=== PATIENT | male | born 1985 | race Caucasian/White ===

== ENCOUNTER 2017-05-03 00:45 | Inpatient (IN) | payer MEDICAID, OTHER ==
[2017-05-03] MEDS ORDERED: Haloperidol INJ IV/IM* 5 MG/ML AMP ONE (01:05)
[2017-05-03] MEDS ORDERED: LORazepam INJ* 2 MG/ML 1 ML VIAL ONE (01:05)
[2017-05-03] MEDS: NS 0.9% 1000 ML* 2,000 ML IV ONE ×2 (01:47→02:16)
[2017-05-03 01:52] LABS: Hematocrit 40 % (42-52); Hemoglobin 13.7 g/dl (14.0-18.0); Mean Corpuscular HGB Conc 34 g/dl (31-36); Mean Corpuscular Hemoglobin 27 pg (27-31); Mean Corpuscular Volume 79 fL (80-94); Mean Platelet Volume 7 um3 (7.4-10.4); Red Cell Distribution Width 15 % (10.5-15); White Blood Count 9.4 10^3/ul (3.5-10.8)
[2017-05-03 02:08] LABS: ALT 42 U/L (7-52); AST 37 U/L (13-39); Albumin 3.9 g/dL (3.2-5.2); Alkaline Phosphatase 70 U/L (34-104); Anion Gap 7 mmol/L (2-11); BUN/Creatinine Ratio 26.4 (8-20); Blood Urea Nitrogen 24 mg/dL (6-24); CO2 Carbon Dioxide 26 mmol/L (22-32); Calcium 8.9 mg/dL (8.6-10.3); Chloride 101 mmol/L (101-111); EGFR Non-African American 97.2 (>60); Globulin 3.1 g/dL (2-4); Glucose 127 mg/dL (70-100); Potassium 3.4 mmol/L (3.5-5.0); Sodium 134 mmol/L (133-145)
[2017-05-03 02:31] LABS: Alcohol < 10 mg/dL (<10); Salicylate < 2.50 mg/dL (<30); TSH (Thyroid Stimulating Horm) 2.93 mcIU/mL (0.34-5.60)
[2017-05-03 02:45] LABS: Acetaminophen < 15 mcg/mL
--- NOTE | 2017-05-03 06:26 | ED ---
Millie Chauhan Rebecca, scribed for Syed Newton on 05/03/17 at 0110 . Psychiatric Complaint - HPI Summary HPI Summary: Pt is a 31 y/o M BIBA accompanied by police who presents to ED as a 2208 after being found agitated. He was found in the [facility] bathroom screaming, yelling and tearing the bathroom apart for 20 minutes, per EMS. Pt continues to be agitated in the ED. Denies any drug use. States that his 3 days ago and that he has been unable to eat or sleep for 3 days. Level 5 caveat due to uncooperativity and agitation. - History Of Current Complaint Chief Complaint: EDSubstanceAbuse Time Seen by Provider: 05/03/17 00:51 Hx Obtained From: EMS Hx From Patient Unobtainable Due To: Other - Uncooperativity and agitation Onset/Duration: Still Present Character: Angry - Agitated - Allergies/Home Medications Allergies/Adverse Reactions: Allergies Allergy/AdvReac Type Severity Reaction Status Date / Time No Known Allergies Allergy Verified 05/03/17 00:56 PMH/Surg Hx/FS Hx/Imm Hx Endocrine/Hematology History: Denies: Hx Diabetes, Hx Thyroid Disease Cardiovascular History: Denies: Hx Hypertension Respiratory History: Reports: Hx Asthma - chiild Denies: Hx Chronic Obstructive Pulmonary Disease (COPD) GI History: Denies: Hx Ulcer History: Denies: Hx Acute Renal Failure, Hx Chronic Renal Failure Neurological History: Denies: Hx Headaches, Hx Migraine Psychiatric History: Reports: Hx Substance Abuse - Surgical History Surgery Procedure, Year, and Place: 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 Infectious Disease History: Unable to Obtain/Confirm Infectious Disease History: Reports: Hx Hepatitis - hep c Denies: Hx Clostridium Difficile, Hx Human Immunodeficiency Virus (HIV), Hx Known/Suspected VRSA, History Other Infectious Disease, Traveled Outside the [place] in Last 30 Days - Family History Known Family History: Positive: Cardiac Disease, Hypertension - Social History Alcohol Use: Rare Hx Substance Use: Yes Substance Use Type: Reports: Heroin, Marijuana, Synthetic Drugs Substance Use Comment - Amount & Last Used: hx of IV drug use Hx Tobacco Use: Yes Smoking Status (MU): Current Every Day Smoker Amount Used/How Often: 1/2 - 1 ppd Have You Smoked in the Last Year: Yes Review of Systems - ROS Summary Review of Systems Summary: Level 5 caveat due to uncooperativity and agitation. Positive: Other - Agitated All Other Systems Reviewed And Are Negative: No Physical Exam - Summary Physical Exam Summary: Appearance: Well appearing, no pain distress Skin: warm, diaphoretic, reflects adequate perfusion Head/face: normal Eyes: EOMI, KIYA ENT: normal Neck: supple, nontender Respiratory: CTA, breath sounds present Cardiovascular: tachycardic, pulses symmetrical Musculoskeletal: moves all extremities in a grossly normal manner Psychiatric: Agitated Level 5 caveat due to agitation and uncooperativity. Triage Information Reviewed: Yes Vital Signs On Initial Exam: Initial Vitals Temp Pulse Resp BP Pulse Ox 99.3 F 125 20 153/91 96 05/03/17 00:45 05/03/17 00:45 05/03/17 00:45 05/03/17 00:45 05/03/17 00:45 Vital Signs Reviewed: Yes Completion Of Physical Exam Limited Due To: Level 5 - Uncooperativity and agitation Diagnostics - Vital Signs Vital Signs Temp Pulse Resp BP Pulse Ox 05/03/17 01:00 119 28 139/69 97 05/03/17 00:55 121 19 153/91 97 05/03/17 00:52 124 18 94 05/03/17 00:45 99.3 F 125 20 153/91 96 - Laboratory Lab Results: Lab Results 05/03/17 05/03/17 05/03/17 Range/Units 01:31 01:31 01:31 WBC 9.4 (3.5-10.8) 10^3/ul RBC 5.10 (4.0-5.4) 10^6/ul Hgb 13.7 L (14.0-18.0) g/dl Hct 40 L (42-52) % MCV 79 L (80-94) fL MCH 27 (27-31) pg MCHC 34 (31-36) g/dl RDW 15 (10.5-15) % Plt Count 346 (150-450) 10^3/ul MPV 7 L (7.4-10.4) um3 Neut % (Auto) 59.6 (38-83) % Lymph % (Auto) 20.7 L (25-47) % [place] % (Auto) 12.0 H (1-9) % Eos % (Auto) 6.9 H (0-6) % Baso % (Auto) 0.8 (0-2) % Absolute Neuts (auto) 5.6 (1.5-7.7) 10^3/ul Absolute Lymphs (auto) 2.0 (1.0-4.8) 10^3/ul Absolute Monos (auto) 1.1 H (0-0.8) 10^3/ul Absolute Eos (auto) 0.6 (0-0.6) 10^3/ul Absolute Basos (auto) 0.1 (0-0.2) 10^3/ul Absolute Nucleated RBC 0.01 10^3/ul Nucleated RBC % 0.1 Sodium 134 (133-145) mmol/L Potassium 3.4 L (3.5-5.0) mmol/L Chloride 101 (101-111) mmol/L Carbon Dioxide 26 (22-32) mmol/L Anion Gap 7 (2-11) mmol/L BUN 24 (6-24) mg/dL Creatinine 0.91 (0.67-1.17) mg/dL Est GFR ( Amer) 125.0 (>60) Est GFR (Non-Af Amer) 97.2 (>60) BUN/Creatinine Ratio 26.4 H (8-20) Glucose 127 H (70-100) mg/dL Lactic Acid 1.0 (0.5-2.0) mmol/L Calcium 8.9 (8.6-10.3) mg/dL Total Bilirubin 0.90 (0.2-1.0) mg/dL AST 37 (13-39) U/L ALT 42 (7-52) U/L Alkaline Phosphatase 70 (34-104) U/L CK-MB (CK-2) Pending Troponin I 0.00 (<0.04) ng/mL Total Protein 7.0 (6.4-8.9) g/dL Albumin 3.9 (3.2-5.2) g/dL Globulin 3.1 (2-4) g/dL Albumin/Globulin Ratio 1.3 (1-3) TSH 2.93 (0.34-5.60) mcIU/mL Salicylates < 2.50 (<30) mg/dL Acetaminophen < 15 mcg/mL Serum Alcohol < 10 (<10) mg/dL Result Diagrams: 05/03/17 01:31 05/03/17 01:31 Lab Statement: Any lab studies that have been ordered have been reviewed, and results considered in the medical decision making process. - Radiology CXR Xray Interpretation: No Acute Changes - congestive changes Radiology Interpretation Completed By: ED Physician - EKG 0100 Cardiac Rate: Tachycardia EKG Rhythm: Sinus Tachycardia EKG Interpretation: Artifact Course/Dx - Course Assessment/Plan: Pt is a 31 y/o M BIBA accompanied by police who presents to ED as a 2209 after being found agitated. He was found in the [facility] bathroom screaming, yelling and tearing the bathroom apart for 20 minutes, per EMS. Pt continues to be agitated in the ED. Denies any drug use. States that his 3 days ago and that he has been unable to eat or sleep for 3 days. Level 5 caveat due to uncooperativity and agitation. CXR reveals no acute findings, as read by ED physician. EKG is sinus tachycardia with artifact. In the ED course, pt received Ativan 2 mg IM, Benadryl 50 mg IM, and Haldol 5 mg and fluids. Pt will be signed out, pending disposition. Elevated BP noted. - Differential Dx/Clinical Impression Differential Diagnosis/HQI/PQRI: Positive: Alcohol Intoxication, Anxiety, Drug Overdose/Intentional Provider Diagnosis: Substance abuse - Critical Care Time Critical Care Time: 30-74 min Discharge - Discharge Plan Condition: Stable Disposition: OTHER Discharge Disposition Comment: Pt will be signed out, pending disposition. Referrals: No Primary Care Phys,NOPCP [Primary Care Provider] - The documentation as recorded by the Millie boyd Rebecca accurately reflects the service I personally performed and the decisions made by , Syed Newton.
[2017-05-03 07:48] LABS: Creatine Kinase 242 U/L (10-223)
[2017-05-03] MEDS ORDERED: NS 0.9% 1000 ML* 2,000 ML IV ONE (07:53)
--- NOTE | 2017-05-03 08:10 | RAD ---
Indication: Drug overdose. Single frontal view of the chest performed at 0141 hours was reviewed. Comparison is made with previous exam dated February 18, 2015. No mediastinal shift is noted. Heart is of normal size and configuration. Lung wood appear clear. IMPRESSION: NO ACTIVE CARDIOPULMONARY DISEASE IS NOTED.
--- NOTE | 2017-05-03 08:59 | RAD ---
Indication: Confusion. CT of the brain was performed without IV contrast. Ventricular structures are midline. No midline shift is noted. The extra-axial spaces are unremarkable. There is no evidence of intracranial mass or hemorrhage. No other high or low density lesions are identified. Mastoid air cells and paranasal sinuses demonstrates mucosal thickening of the sphenoid sinuses and ethmoid air cells. IMPRESSION: No intracranial mass or hemorrhage is noted.
--- NOTE | 2017-05-03 09:12 | RAD ---
INDICATION: Altered mental status. COMPARISON: No relevant prior exams available on the [facility] PACS for comparison. TECHNIQUE: Multidetector CT images foramen magnum to lung apices without contrast. Multiplanar reformation. REPORT: Motion artifact noted at the T3 level. Normal vertebral alignment accounting for exam positioning without spondylolisthesis or subluxation at any level. Negative for cervical vertebral body or posterior element fracture. Negative for paravertebral hematoma. Mild vertebral endplate osteophytosis without significant disc space narrowing at C5-C6. Mild dorsal disc osteophyte complex at C5-C6 results in minimal impression on the ventral margin of the thecal sac without significant resulting central canal stenosis. IMPRESSION: No CT evidence for traumatic cervical spine injury.
[2017-05-03 11:31] LABS: Urine Bilirubin Negative (Negative); Urine Glucose Negative (Negative); Urine Nitrite Negative (Negative)
[2017-05-03 12:04] LABS: Benzodiazepine Urine Screen None Detected (None Detect)
[2017-05-03] MEDS: NS 0.9% 1000 ML* 1,000 ML IV SCH ×2 (15:26→23:06)
--- NOTE | 2017-05-03 16:18 | ED ---
José Chauhan Benjamin, scribed for Terrance Conn MD on 05/03/17 at 1111 . Progress - Progress Note Progress Note: 31yo male presents to ED as 2209. Pending disposition and CT reports and repeat EKG. - Results/Orders Results/Orders: EK:01. 61bpm. Biphasic STs in Anterior leads. Prolonged QTCs. CT Brain WO IMPRESSION: No intracranial mass or hemorrhage is noted. ED physician has reviewed this radiology report and agrees. CT C-spine WO IMPRESSION: No CT evidence for traumatic cervical spine injury. ED physician has reviewed this radiology report and agrees. Course/Dx - Course Course Of Treatment: PATIENT STILL CONFUSED AFTER 6 HOURS IN ED. ADMIT HOSPITALIST. - Diagnoses Provider Diagnoses: Substance abuse, Altered mental state - Critical Care Time Critical Care Time: 30-74 min The documentation as recorded by the José boyd Benjamin accurately reflects the service I personally performed and the decisions made by , Terrance Conn MD.
--- NOTE | 2017-05-04 00:19 | HP ---
HISTORY AND PHYSICAL: DATE OF ADMISSION: 05/03/17 PRIMARY CARE PHYSICIAN: The patient has no primary care physician. CHIEF COMPLAINT: The patient agitated and confused. HISTORY OF PRESENT ILLNESS: The patient is a 31-year-old gentleman, who was brought into the emergency room last night agitated and confused. He required medication for sedation. Unfortunately after the patient received sedation, he could no longer be arouse. The patient's urine toxicology apparently came back positive for opiates, cocaine, amphetamines, and marijuana. The patient's apparently in the hospital approximately 1 week ago and he has been quite depressed according to the mother. It is unclear if he took these medications to actively hurt himself or just as self-medicating his own personal pain. The patient is being admitted to the ICU under observation, this can be clarified. PAST MEDICAL HISTORY: Polysubstance abuse. MEDICATIONS: Unknown. SOCIAL HISTORY: Polysubstance use, otherwise unknown. FAMILY HISTORY: last week, otherwise unknown. REVIEW OF SYSTEMS: Unable to obtain again from the patient's conscious sedation and unknown. PHYSICAL EXAMINATION GENERAL: The patient is sedated, lying in bed, in no acute distress. VITAL SIGNS: Blood pressure is 109/51, pulse ox 96%, respiratory rate 15 breaths per minute, heart rate 67 beats per minute. HEENT: Normocephalic, atraumatic. NECK: Supple. No JVD, bruits, palpable thyroid, or lymphadenopathy. CHEST: Clear to auscultation and percussion bilaterally. CARDIOVASCULAR: S1, S2 appreciated. Regular rate and rhythm. ABDOMEN: Positive bowel sounds in all 4 quadrants. Soft, nontender, and nondistended. EXTREMITIES: No cyanosis, clubbing, or edema. +2 pulses bilaterally. NEURO: He is sedated, unarousable, but he moves all extremities. He is protecting his airway. SKIN: No rashes. DIAGNOSTIC STUDIES/LAB DATA: White count 9.4, hemoglobin 13.7, hematocrit 40, platelets are 346. Sodium is 134, potassium 3.4, chloride 101, CO2 26, BUN 24, creatinine 0.91, glucose is 127. Urinalysis is unremarkable. Urine tox again positive for opiates, amphetamines, cocaine, and marijuana. Chest x-ray shows no active cardiopulmonary disease. Brain CT shows no intracranial mass or hemorrhage. Cervical spine CT shows no CT evidence for traumatic cervical spine injury. EKG shows sinus bradycardia at 54 beats per minute, normal axis, no acute ST-T wave changes. ASSESSMENT AND PLAN: 1. Likely drug overdose: We will monitor the patient in the ICU with one-to- one observation. At this point, it is unclear that this was a suicide attempt or not. When the patient wakes up, we will discuss with him. We will get social work consult. We will get psychiatric consult. 2. FEN. N.p.o., IV fluids at this time. 3. DVT prophylaxis. None, he is young and ambulatory. 4. The patient is a full code. TIME SPENT: Over 75 minutes were spent on this H and P, more than 40 minutes were spent in direct [id number] contact with the patient in evaluation, physical exam and counseling and coordination of care. [id number]/CPS #: [id number] CHARMAINE
[2017-05-04] MEDS ORDERED: cloNIDine TAB* 0.1 MG ONE (11:36)
[2017-05-04] MEDS: cloNIDine TAB* 0.1 MG PO PRN ×2 (11:39→22:21)
[2017-05-04] MEDS: NS 0.9% 1000 ML* 1,000 ML IV SCH (13:18)
[2017-05-04] MEDS: Nicotine PATCH 21 MG/24 HR* PATCH TRANSDERM SCH ×2 (16:38→16:40)
[2017-05-04] MEDS: LORazepam INJ* 2 MG/ML 1 ML VIAL IV PUSH PRN ×2 (17:15→22:16)
[2017-05-04] MEDS ORDERED: Ondansetron INJ* 2 MG/ML VIAL IV PRN (20:46)
[2017-05-04] MEDS ORDERED: Nicotine Patch Removal NOTE FOLLOW UP SCH (21:00)
--- NOTE | 2017-05-04 21:43 | PN ---
Subjective Date of Service: 05/04/17 Interval History: Patient awake today and wants to go home. Objective Active Medications: Clonidine HCl (Catapres Tab*) 0.1 mg PO TID PRN PRN Reason: AGITATION/ANXIETY/INSOMNIA Last Admin: 05/04/17 11:39 Dose: 0.1 mg Sodium Chloride (Ns 0.9% 1000 Ml*) 1,000 mls @ 125 mls/hr IV PER RATE [facility] Last Admin: 05/04/17 13:18 Dose: 125 mls/hr Lorazepam (Ativan Inj*) 0.5 mg IV PUSH Q4H PRN PRN Reason: ANXIETY Last Admin: 05/04/17 17:15 Dose: 0.5 mg Nicotine (Nicotine Patch 21 Mg/24 Hr*) 1 patch TRANSDERM DAILY [facility] Last Admin: 05/04/17 16:40 Dose: Not Given Ondansetron HCl (Zofran Inj*) 4 mg IV Q6H PRN PRN Reason: NAUSEA Pharmacy Profile Note (Nicotine Patch Removal Note*) 1 note FOLLOW UP 2100 [facility] Vital Signs 05/03/17 05/03/17 05/03/17 21:45 22:00 22:01 Temperature Pulse Rate 73 65 63 Respiratory 16 16 15 Rate Blood Pressure 118/71 126/85 (mmHg) O2 Sat by Pulse 95 96 96 Oximetry 05/03/17 05/03/17 05/03/17 22:10 22:15 22:30 Temperature Pulse Rate 70 82 69 Respiratory 15 17 18 Rate Blood Pressure 123/73 114/74 (mmHg) O2 Sat by Pulse 96 96 98 Oximetry 05/03/17 05/03/17 05/03/17 22:45 23:00 23:15 Temperature Pulse Rate 70 61 70 Respiratory 26 15 22 Rate Blood Pressure 108/69 124/70 115/65 (mmHg) O2 Sat by Pulse 97 97 95 Oximetry 05/03/17 05/03/17 05/04/17 23:30 23:45 00:00 Temperature Pulse Rate 61 73 70 Respiratory 23 19 14 Rate Blood Pressure 110/64 111/53 104/58 (mmHg) O2 Sat by Pulse 96 98 98 Oximetry 05/04/17 05/04/17 05/04/17 00:01 00:15 00:30 Temperature Pulse Rate 79 72 77 Respiratory 15 15 14 Rate Blood Pressure 113/56 109/56 (mmHg) O2 Sat by Pulse 95 97 96 Oximetry 05/04/17 05/04/17 05/04/17 00:33 00:45 00:56 Temperature 98.5 F Pulse Rate 77 Respiratory 15 14 Rate Blood Pressure 113/55 (mmHg) O2 Sat by Pulse 96 Oximetry 05/04/17 05/04/17 05/04/17 01:00 01:01 01:15 Temperature Pulse Rate 69 64 96 Respiratory 22 14 22 Rate Blood Pressure 103/56 120/75 (mmHg) O2 Sat by Pulse 97 97 95 Oximetry 05/04/17 05/04/17 05/04/17 01:30 01:45 02:00 Temperature Pulse Rate 75 73 80 Respiratory 25 16 14 Rate Blood Pressure 112/53 131/76 (mmHg) O2 Sat by Pulse 95 98 97 Oximetry 05/04/17 05/04/17 05/04/17 02:01 02:15 02:30 Temperature Pulse Rate 76 86 71 Respiratory 14 15 15 Rate Blood Pressure 119/75 124/73 140/81 (mmHg) O2 Sat by Pulse 97 96 99 Oximetry 05/04/17 05/04/17 05/04/17 02:45 03:00 03:01 Temperature Pulse Rate 71 66 71 Respiratory 15 14 16 Rate Blood Pressure 138/83 118/81 (mmHg) O2 Sat by Pulse 99 97 97 Oximetry 05/04/17 05/04/17 05/04/17 03:15 03:38 03:46 Temperature Pulse Rate 62 68 88 Respiratory 18 14 13 Rate Blood Pressure 111/88 122/61 110/55 (mmHg) O2 Sat by Pulse 95 97 98 Oximetry 05/04/17 05/04/17 05/04/17 04:00 04:01 04:16 Temperature 99.1 F Pulse Rate 78 63 Respiratory 18 20 18 Rate Blood Pressure 125/86 126/82 (mmHg) O2 Sat by Pulse 92 Oximetry 05/04/17 05/04/17 05/04/17 04:30 04:45 05:00 Temperature Pulse Rate Respiratory 16 19 20 Rate Blood Pressure 129/75 121/62 108/61 (mmHg) O2 Sat by Pulse Oximetry 05/04/17 05/04/17 05/04/17 05:15 06:00 06:01 Temperature Pulse Rate 75 66 Respiratory 16 28 29 Rate Blood Pressure 89/73 126/75 (mmHg) O2 Sat by Pulse 100 100 Oximetry 05/04/17 05/04/17 05/04/17 06:04 06:15 07:00 Temperature Pulse Rate 66 65 Respiratory 29 24 23 Rate Blood Pressure 148/86 151/95 (mmHg) O2 Sat by Pulse 100 100 Oximetry 05/04/17 05/04/17 05/04/17 07:01 07:58 08:00 Temperature 99.3 F Pulse Rate 98 66 Respiratory 18 23 Rate Blood Pressure 138/78 (mmHg) O2 Sat by Pulse 96 97 Oximetry 05/04/17 05/04/17 05/04/17 08:01 09:00 09:01 Temperature Pulse Rate 80 Respiratory 23 30 34 Rate Blood Pressure 157/81 (mmHg) O2 Sat by Pulse 96 Oximetry 05/04/17 05/04/17 05/04/17 10:00 10:01 11:00 Temperature Pulse Rate Respiratory 23 24 25 Rate Blood Pressure 161/87 155/83 (mmHg) O2 Sat by Pulse Oximetry 05/04/17 05/04/17 05/04/17 11:01 11:50 12:00 Temperature 99.1 F Pulse Rate Respiratory 16 31 Rate Blood Pressure 163/91 (mmHg) O2 Sat by Pulse Oximetry 05/04/17 05/04/17 05/04/17 12:01 13:00 13:51 Temperature Pulse Rate Respiratory 25 20 19 Rate Blood Pressure 170/112 132/95 (mmHg) O2 Sat by Pulse Oximetry 05/04/17 05/04/17 05/04/17 14:20 14:23 16:33 Temperature 98.1 F 98.1 F 98.5 F Pulse Rate 73 73 65 Respiratory 22 22 20 Rate Blood Pressure 145/81 145/81 152/85 (mmHg) O2 Sat by Pulse 100 100 100 Oximetry 05/04/17 05/04/17 05/04/17 17:15 18:15 19:37 Temperature 99.3 F Pulse Rate 68 Respiratory 20 20 18 Rate Blood Pressure 136/68 (mmHg) O2 Sat by Pulse 100 Oximetry Oxygen Devices in Use Now: None Appearance: Thin gentleman lying in bed in NAD Eyes: No Scleral Icterus Ears/Nose/Mouth/Throat: Mucous Membranes Moist Neck: NL Appearance and Movements; NL JVP, No Thyroid Enlargement, Masses Respiratory: Clear to Auscultation Cardiovascular: NL Sounds; No Murmurs; No JVD, RRR, No Edema Abdominal: NL Sounds; No Tenderness; No Distention, No Hepatosplenomegaly Lymphatic: No Cervical Adenopathy, No Axillary Adenopathy Extremities: No Edema Skin: - - Numerous tattoos Neurological: Alert and Oriented x 3 Result Diagrams: 05/03/17 01:31 05/03/17 01:31 Additional Lab and Data: Lab Results 05/03/17 05/03/17 05/03/17 Range/Units 01:31 01:31 01:31 WBC 9.4 (3.5-10.8) 10^3/ul RBC 5.10 (4.0-5.4) 10^6/ul Hgb 13.7 L (14.0-18.0) g/dl Hct 40 L (42-52) % MCV 79 L (80-94) fL MCH 27 (27-31) pg MCHC 34 (31-36) g/dl RDW 15 (10.5-15) % Plt Count 346 (150-450) 10^3/ul MPV 7 L (7.4-10.4) um3 Neut % (Auto) 59.6 (38-83) % Lymph % (Auto) 20.7 L (25-47) % [place] % (Auto) 12.0 H (1-9) % Eos % (Auto) 6.9 H (0-6) % Baso % (Auto) 0.8 (0-2) % Absolute Neuts (auto) 5.6 (1.5-7.7) 10^3/ul Absolute Lymphs (auto) 2.0 (1.0-4.8) 10^3/ul Absolute Monos (auto) 1.1 H (0-0.8) 10^3/ul Absolute Eos (auto) 0.6 (0-0.6) 10^3/ul Absolute Basos (auto) 0.1 (0-0.2) 10^3/ul Absolute Nucleated RBC 0.01 10^3/ul Nucleated RBC % 0.1 Sodium 134 (133-145) mmol/L Potassium 3.4 L (3.5-5.0) mmol/L Chloride 101 (101-111) mmol/L Carbon Dioxide 26 (22-32) mmol/L Anion Gap 7 (2-11) mmol/L BUN 24 (6-24) mg/dL Creatinine 0.91 (0.67-1.17) mg/dL Est GFR ( Amer) 125.0 (>60) Est GFR (Non-Af Amer) 97.2 (>60) BUN/Creatinine Ratio 26.4 H (8-20) Glucose 127 H (70-100) mg/dL Lactic Acid 1.0 (0.5-2.0) mmol/L Calcium 8.9 (8.6-10.3) mg/dL Total Bilirubin 0.90 (0.2-1.0) mg/dL AST 37 (13-39) U/L ALT 42 (7-52) U/L Alkaline Phosphatase 70 (34-104) U/L CK-MB (CK-2) Pending Troponin I 0.00 (<0.04) ng/mL Total Protein 7.0 (6.4-8.9) g/dL Albumin 3.9 (3.2-5.2) g/dL Globulin 3.1 (2-4) g/dL Albumin/Globulin Ratio 1.3 (1-3) TSH 2.93 (0.34-5.60) mcIU/mL Salicylates < 2.50 (<30) mg/dL Acetaminophen < 15 mcg/mL Serum Alcohol < 10 (<10) mg/dL Microbiology and Other Data: Microbiology 05/03/17 14:55 Nasal Screen MRSA (PCR)(BUNNY) - Final Nasal Mrsa Positive Assess/Plan/Problems-Billing Assessment: 31 year old who OD on polysubstances and is significantly depressed since his last week. - Patient Problems (1) Overdose Current Visit: Yes Status: Acute Code(s): T50.901A - POISONING BY UNSP DRUG/ MEDS/BIOL SUBST, ACCIDENTAL, INIT SNOMED Code(s): 28385487 Comment: Patient denies he was trying to kill himself. Overdose by accident . Tried to ease the pain of losing his . Wants to go home. (2) Depression Current Visit: Yes Status: Acute Code(s): F32.9 - MAJOR DEPRESSIVE DISORDER , SINGLE EPISODE, UNSPECIFIED SNOMED Code(s): 05877564 Comment: The patient does not seem to grasp the gravity of his situation or that he could by continuing his current behavior. Psych has seen and agrees he is not safe and is a danger to himself. Will transfer to Psych when medically stable which will likely be tomorrow.
--- NOTE | 2017-05-04 22:08 | CONS ---
CONSULTATION REPORT: DATE OF CONSULTATION: ATTENDING PHYSICIAN: Dilshad Cherry MD CONSULTING PHYSICIAN: Christian Arreguin MD REASON FOR CONSULT: Agitated behavior. SUBJECTIVE HISTORY: Psychiatry is asked to see this 31-year-old recently white male with a history of polysubstance abuse (amphetamines, opioids, cocaine, and cannabis) due to agitated behavi or. Apparently, the patient was discovered in a bathroom at the local [employer] extremely confused, c ombative, agitated, unable to account for himself. He was brought to the hospital where he continue d to act out and he was therefore brought to the ICU after attempts to chemically restrain him resul angela in obtunded somnolent behavior. My understanding is that he has awoken this morning and continu es to be agitated and demanding and is asking to go home. The history leading up to this event is th at his of the past 6 years just on , 04/29/17. She was a patient at the ICU here at [facility] who apparently was also an IV drug user. Ultimately, she of complications from endocard itis and sepsis, likely both secondary to IV drug use. The patient has taken this hard. He has bee n despondent. I had spoken with his adoptive mother who indicates that he made a statement to his p myrtlets that he would no longer use drugs because he felt that it was not a solution to his pain. In spite of this, he appears to have had a polysubstance overdose given the fact that he had cannabis, cocaine, amphetamines, and opioids in his system according to urine toxicology results. Currently, I am speaking with his father, Bill Pena and his mother, Dang Puentes. They indicate that the flip varma has been living for the last 5 or 6 years here in [place] with his spouse. They are concerned because her is being arranged by her family out in [place], [place], and the patient is e xpressing interest in flying there to attend that, but they claim that this would not be safe at all . In fact, they are stating they do not even feel safe taking him home given the fact that his moth er lives part-time in [facility] and his father travels extensively. They also do not feel that they could provide adequate structure for him in the home setting. When I meet with the patient, he continues to have slurred words, appearing somnolent but at times he arouses himself enough to make agitated demands that the leave he hospital immediately and go home. He is unable to provide much c oherent history and I am relying on his parents for the bulk of my assessment. PAST PSYCHIATRIC HISTORY: The patient apparently began seeing psychologist and mental health bridgett gutierrez at the young age of 55 years old, although he has not seen any mental health providers in the 15 years as far as his parents can tell. At times, he has told them that he is on Concerta; [facility], when I checked the [employer] Controlled Substances website, the only medications I see are a brief list of short-term prescriptions for Suboxone written by the ER physician, Dr. Kylie fitzpatrick, in July 2016. The patient was sent to several children's residential treatment facilities, at least 3 during his adolescence. There, he received multiple trials of antipsychotic medications; h owever, neither the parents nor the patient recall the names of these medications. Currently, the p atient is denying suicidal ideations. He apparently has no history of violence towards others, alth ough he was kicked out of schools in the past for aggressive behavior and not following rules. He h as no known traumatic brain injury history. The patient's parents are unaware that he has ever been a victim of abuse or neglect. SUBSTANCE ABUSE HISTORY: Significant for heroin, cocaine, amphetamines and cannabis. He is a 1 pac k per day smoker. He does not abuse alcohol. According to [employer], he received Suboxone briefly in July [address] Kylie Hernandez. He has been to rehab at least once for 3 months in [place] apparently 10 years ago. PAST MEDICAL HISTORY: Significant for: 1. Inguinal hernia. 2. Hepatitis C. 3. History of MRSA. 4. Prostatitis. 5. Renal calculi. MEDICATIONS: He is not on any current medications. ALLERGIES: He has no known drug allergies. FAMILY HISTORY: The patient was adopted at . His biological father apparently committed suici de just prior to his , although the patient does not know this. SOCIAL HISTORY: The patient was born in [place] and then his adoptive parents moved him to [place]. The family later moved to [place] when the patient was only 2 years old. He dropped out of school as a senior after going to several therapeutic boarding homes and residential treatment faci lities, but ultimately was able to get his GED. He has no college history. He does have 1 sister karson adamson is the biological child of his adoptive parents. She is 31 years old also. 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 He does receive fi nancial support from his parents. He was at the age of 25, although his spouse just le ss than a week ago. He has no children of his own. He identifies as heterosexual but has no known sexually transmitted diseases. He is not latter-day, although he was raised Jehovah'S Witness. He does have a significant legal history of multiple drug charges in the past resulting in both snf time as well a s state group home stays. He is not currently on probation. MENTAL STATUS EXAM: The patient is a young, somewhat slightly built red haired white male wearing a hospital gown who is scrunched up in the position lying on his side in the hospital bed withi n the ICU. He is asleep, but is arousable. He has minimal words to say with not much spontaneous sp eech other than to request discharge to home. At times, there is a slight agitated presentation. M ood appears to be extremely depressed with a constricted affect. Thought process is confused. Thou ght content is significant for his desire to leave the hospital. He is denying suicidal or homicida l ideations. He denies auditory or visual hallucinations. Insight and judgment appeared to be sonia edly poor and impaired given his refusal of inpatient psychiatric or substance abuse treatment. Cogn itively, he is asleep, but barely arousable. DIAGNOSES: Cropsey I: Opioid-induced mood disorder, opioid use disorder, amphetamine use disorder, ca nnabis use disorder, cocaine use disorder. Cropsey II: Deferred. Cropsey III: Inguinal hernia, hepatitis C, history of MRSA, history of prostatitis, history of renal calculi. Cropsey IV: Severe primary supp ort stressors. Cropsey V: At this time is 30. ASSESSMENT: The patient is a 31-year-old recently white male with a significant history of drug abuse who is currently admitted to the ICU after he arrived agitated to our hospital and requir ed chemical sedation. He has since woken up from this and although still somnolent, he has been per iodically agitated. His parents do not believe that he is safe for discharge. They are indicating t hey believe that his drug overdose may have been self-harming in intention, although the patient is denying this. RECOMMENDATIONS TO PRIMARY TEAM: Psychiatry believes that there is enough evidence of the patient's risk to himself that a 9.39 can be signed by the primary team and the patient can be transferred pe nding medical clearance to the behavioral science unit. For now, I am going to write an order to pu t him back on one-to-one observation. I am also going to start a nicotine patch to reduce agitation secondary to nicotine craving. Psychiatry will continue to follow the patient's care until he is t ransferred to our unit. Thank you for allowing us to participate in the care of this patient. [id number]/[facility] #: [id number]
[2017-05-05] MEDS: NS 0.9% 1000 ML* 1,000 ML IV SCH (07:51)
[2017-05-05 09:12] VITALS: BP 119/66
[2017-05-05] MEDS: Nicotine PATCH 21 MG/24 HR* PATCH TRANSDERM SCH (09:21)
[2017-05-05] MEDS ORDERED: Ziprasidone IM INJ* 20 MG/ML VIAL IM ONE (11:00)
--- NOTE | 2017-05-05 14:51 | PN ---
Subjective Date of Service: 05/05/17 Interval History: Patient is fairly adamant about going home. Objective Active Medications: Clonidine HCl (Catapres Tab*) 0.1 mg PO TID PRN PRN Reason: AGITATION/ANXIETY/INSOMNIA Last Admin: 05/04/17 22:21 Dose: 0.1 mg Sodium Chloride (Ns 0.9% 1000 Ml*) 1,000 mls @ 125 mls/hr IV PER RATE [facility] Last Admin: 05/05/17 07:51 Dose: 125 mls/hr Lorazepam (Ativan Inj*) 0.5 mg IV PUSH Q4H PRN PRN Reason: ANXIETY Last Admin: 05/04/17 22:16 Dose: 0.5 mg Nicotine (Nicotine Patch 21 Mg/24 Hr*) 1 patch TRANSDERM DAILY [facility] Last Admin: 05/05/17 09:21 Dose: Not Given Ondansetron HCl (Zofran Inj*) 4 mg IV Q6H PRN PRN Reason: NAUSEA Last Admin: 05/04/17 22:17 Dose: 4 mg Pharmacy Profile Note (Nicotine Patch Removal Note*) 1 note FOLLOW UP 2100 [facility] Last Admin: 05/05/17 04:17 Dose: Not Given Vital Signs 05/04/17 05/04/17 05/04/17 16:33 17:15 18:15 Temperature 98.5 F Pulse Rate 65 Respiratory 20 20 20 Rate Blood Pressure 152/85 (mmHg) O2 Sat by Pulse 100 Oximetry 05/04/17 05/04/17 05/04/17 19:37 20:00 22:16 Temperature 99.3 F Pulse Rate 68 Respiratory 18 18 24 Rate Blood Pressure 136/68 (mmHg) O2 Sat by Pulse 100 Oximetry 05/04/17 05/05/17 05/05/17 23:16 02:27 07:47 Temperature 98.1 F 98.3 F Pulse Rate 59 62 Respiratory 16 16 19 Rate Blood Pressure 110/67 119/66 (mmHg) O2 Sat by Pulse 95 100 Oximetry 05/05/17 08:00 Temperature Pulse Rate Respiratory 19 Rate Blood Pressure (mmHg) O2 Sat by Pulse Oximetry Oxygen Devices in Use Now: None Appearance: Thin gentleman lying in bed in NAD Ears/Nose/Mouth/Throat: Clear Oropharnyx Neck: No Thyroid Enlargement, Masses Respiratory: Clear to Auscultation Cardiovascular: RRR, - - S1S2 vida Abdominal: NL Sounds; No Tenderness; No Distention, No Hepatosplenomegaly Lymphatic: No Cervical Adenopathy, No Axillary Adenopathy Extremities: No Edema Skin: No Rash or Ulcers Neurological: Alert and Oriented x 3 Result Diagrams: 05/03/17 01:31 05/03/17 01:31 Additional Lab and Data: Lab Results 05/03/17 05/03/17 05/03/17 Range/Units 01:31 01:31 01:31 WBC 9.4 (3.5-10.8) 10^3/ul RBC 5.10 (4.0-5.4) 10^6/ul Hgb 13.7 L (14.0-18.0) g/dl Hct 40 L (42-52) % MCV 79 L (80-94) fL MCH 27 (27-31) pg MCHC 34 (31-36) g/dl RDW 15 (10.5-15) % Plt Count 346 (150-450) 10^3/ul MPV 7 L (7.4-10.4) um3 Neut % (Auto) 59.6 (38-83) % Lymph % (Auto) 20.7 L (25-47) % [place] % (Auto) 12.0 H (1-9) % Eos % (Auto) 6.9 H (0-6) % Baso % (Auto) 0.8 (0-2) % Absolute Neuts (auto) 5.6 (1.5-7.7) 10^3/ul Absolute Lymphs (auto) 2.0 (1.0-4.8) 10^3/ul Absolute Monos (auto) 1.1 H (0-0.8) 10^3/ul Absolute Eos (auto) 0.6 (0-0.6) 10^3/ul Absolute Basos (auto) 0.1 (0-0.2) 10^3/ul Absolute Nucleated RBC 0.01 10^3/ul Nucleated RBC % 0.1 Sodium 134 (133-145) mmol/L Potassium 3.4 L (3.5-5.0) mmol/L Chloride 101 (101-111) mmol/L Carbon Dioxide 26 (22-32) mmol/L Anion Gap 7 (2-11) mmol/L BUN 24 (6-24) mg/dL Creatinine 0.91 (0.67-1.17) mg/dL Est GFR ( Amer) 125.0 (>60) Est GFR (Non-Af Amer) 97.2 (>60) BUN/Creatinine Ratio 26.4 H (8-20) Glucose 127 H (70-100) mg/dL Lactic Acid 1.0 (0.5-2.0) mmol/L Calcium 8.9 (8.6-10.3) mg/dL Total Bilirubin 0.90 (0.2-1.0) mg/dL AST 37 (13-39) U/L ALT 42 (7-52) U/L Alkaline Phosphatase 70 (34-104) U/L CK-MB (CK-2) Pending Troponin I 0.00 (<0.04) ng/mL Total Protein 7.0 (6.4-8.9) g/dL Albumin 3.9 (3.2-5.2) g/dL Globulin 3.1 (2-4) g/dL Albumin/Globulin Ratio 1.3 (1-3) TSH 2.93 (0.34-5.60) mcIU/mL Salicylates < 2.50 (<30) mg/dL Acetaminophen < 15 mcg/mL Serum Alcohol < 10 (<10) mg/dL Microbiology and Other Data: Microbiology 05/03/17 14:55 Nasal Screen MRSA (PCR)(BUNNY) - Final Nasal Mrsa Positive Assess/Plan/Problems-Billing Assessment: 31 year old who OD on polysubstances and is significantly depressed since his last week. - Patient Problems (1) Overdose Current Visit: Yes Status: Acute Code(s): T50.901A - POISONING BY UNSP DRUG/ MEDS/BIOL SUBST, ACCIDENTAL, INIT SNOMED Code(s): 72384396 Comment: He is not tachycardic, not anxious, not diaphoretic. No evidence of withdrawing. Transfer to Psych. (2) Depression Current Visit: Yes Status: Acute Code(s): F32.9 - MAJOR DEPRESSIVE DISORDER , SINGLE EPISODE, UNSPECIFIED SNOMED Code(s): 01617621 Comment: For Psych transfer today. Appreciate their input.
--- NOTE | 2017-05-05 15:07 | CONSULT ---
Identification - Patient Identification Reason for Psychiatric Consultation: Incapacitating Symptoms -: Patient is a 31 year old, M admitted on 05/03/17. - MHU Identification Employment Status: Unemployed Hx Psychiatric Hospitalization: No History - Objective HPI: Julius is distraught, soheila, irritable, demanding discharge. He denies SI, stating "You guys are making a big mistake trying to keep me here." He states that his intention is to travel to [place], [place] as soon as discharged in order to help his givuig-xw-sev plan for his recently 's . He is psychomotor agitated and depressed, tearful at times. Lab Results: Laboratory Tests 05/04/17 05:30 B-Natriuretic Peptide 67 Exam Appearance: Thin Framed Hygiene: Dirty Grooming: Disheveled Psychomotor Activities: Abnormal-Increased Exhibits Abnormal Movement: Yes Attitude and Relatedness: Irritable Eye Contact: Fair - Speech Quality: Unpressured Latencies: Normal Quantity: Appropriate Patient's Decription of Mood: "Irritable" Observed Affect: Labile Affect Consistent with: Dysphoria Patient's Thought Process: Goal Directed Thought Content: No Passive Wish, No Suicidal Planning, No Homicidal Ideation, No Paranoid Ideation Experiencing Hallucinations: No, Sensorium is Clear Type of Hallucinations: Visual: No, Auditory: No, Command: No Level of Consciousness: Agitated Orientation: Yes Intact, Yes Orientated to Time, Yes Orientated to Place, Yes Orientated to Person Impulse Control: Poor Insight and Judgement: Impaired Impression - Impression Clinical Impression: 31 y.o. recently , white male with a history of polydrug dependence admitted to medicine following overdose on cocaine, heroin, cannabis and amphetamines with questionable motives, suspicious for suicide. Merits Inpatient Hospitalization: Yes Problem List - MHU Problems Type of Problem: Mood Status of Problem: Active Plan - Treatment Plan Treatment Plan: Recommend admission to the [facility] on the grounds that the patient is unable to care for himself or ensure his own safety. Continue 1:1. Can use prn lorazepam for agitation. Psychiatry will continue to follow until he is safely transferred to our care. Continued Medication Management: Start Medication Medications: Current Medications Clonidine HCl (Catapres Tab*) 0.1 mg PO TID PRN PRN Reason: AGITATION/ANXIETY/INSOMNIA Last Admin: 05/04/17 22:21 Dose: 0.1 mg Sodium Chloride (Ns 0.9% 1000 Ml*) 1,000 mls @ 125 mls/hr IV PER RATE [facility] Last Admin: 05/05/17 07:51 Dose: 125 mls/hr Lorazepam (Ativan Inj*) 0.5 mg IV PUSH Q4H PRN PRN Reason: ANXIETY Last Admin: 05/04/17 22:16 Dose: 0.5 mg Nicotine (Nicotine Patch 21 Mg/24 Hr*) 1 patch TRANSDERM DAILY [facility] Last Admin: 05/05/17 09:21 Dose: Not Given Ondansetron HCl (Zofran Inj*) 4 mg IV Q6H PRN PRN Reason: NAUSEA Last Admin: 05/04/17 22:17 Dose: 4 mg Pharmacy Profile Note (Nicotine Patch Removal Note*) 1 note FOLLOW UP 2100 [facility] Last Admin: 05/05/17 04:17 Dose: Not Given - Discharge Plan Discharge Plan: Inpatient Hospitalization
[2017-05-05] MEDS: cloNIDine TAB* 0.1 MG PO PRN (15:35)
--- NOTE | 2017-05-06 06:42 | DS ---
CC: Dr. Arreguin DISCHARGE SUMMARY: DATE OF ADMISSION: 05/03/17 DATE OF DISCHARGE: 05/05/17 ADMISSION DIAGNOSIS: Overdose. DISCHARGE DIAGNOSIS: Overdose. HOSPITAL COURSE: The patient is a 31-year-old gentleman, who presented to [facility] after taking numerous substances. Included were narcotics , cocaine, marijuana, and amphetamines. The patient was sedated once he came to the ER because of agitation. He remained sedated for some time, so he was admitted to the ICU with a one-to-one. The patient did well over the next day. He did start feeling withdrawal with restlessness and agitation and hypertension. He was placed on clonidine p.r.n. The patient remained well for the next 24 hours. Psychiatry was consulted and was agreed that the patient was a harm to himself and did not realize the ramifications; therefore, the patient was admitted to the Psych Unit on 05/05/17 for further treatment. PHYSICAL EXAMINATION: On the date of discharge, a well-developed, well- nourished gentleman sitting up in bed, in no acute distress. Vital Signs: Temperature 98.6 degrees, heart rate 70 beats per minute, respiratory rate 17 breaths per minute, pulse ox 100%, and blood pressure 150/90. HEENT: Normocephalic and atraumatic. Pupils equal, round, and reactive to light. Moist mucous membranes. Neck: Supple. No JVD, bruits, palpable thyroid, or lymphadenopathy. Chest: Clear to auscultation and percussion bilaterally. Cardiovascular Exam: S1 and S2 appreciated. Regular, rate, and rhythm. No murmurs, gallops, or rubs. Abdominal Exam: Positive bowel sounds in all 4 quadrants, soft, nontender, and nondistended. Extremities: No cyanosis, clubbing, or edema. +2 pulses bilaterally. Neuro: Alert and oriented x3, moves all extremities. Skin: No rashes or abnormalities. DISCHARGE MEDICATIONS: 1. Ativan 1 mg every 6 hours as needed. 2. Multivitamin 1 tablet daily. 3. Nicotine inhaler. 4. Tylenol p.r.n. DISCHARGE PLAN: The patient will be discharged for further psychiatric evaluation. TIME SPENT: Over 35 minutes were spent on this discharge, more than 20 minutes of which was spent in direct wwkw-yr-uzho contact with the patient evaluation, physical exam, counseling, and coordination of care. [id number]/[facility] #: [id number] CHARMAINE
== END 2017-05-05 16:44 | DRG 812 ==
LOC: ED 00:45 → ICU 13:03 → MED 05-04 15:19
PROVIDERS: ADMIT Internal Medicine; ATTEND Internal Medicine
DX: T40.7X2A Poisoning by cannabis (derivatives), intentional self-harm, initial encounter (principal); F11.29 Opioid dependence with unspecified opioid-induced disorder; F14.20 Cocaine dependence, uncomplicated; F19.239 Other psychoactive substance dependence with withdrawal, unspecified; F15.20 Other stimulant dependence, uncomplicated; T40.602A Poisoning by unspecified narcotics, intentional self-harm, initial encounter; F17.210 Nicotine dependence, cigarettes, uncomplicated; I10 Essential (primary) hypertension; T40.5X2A Poisoning by cocaine, intentional self-harm, initial encounter; B19.20 Unspecified viral hepatitis C without hepatic coma; K40.90 Unilateral inguinal hernia, without obstruction or gangrene, not specified as recurrent; F12.21 Cannabis dependence, in remission; F32.9 Major depressive disorder, single episode, unspecified; Z82.49 Family history of ischemic heart disease and other diseases of the circulatory system; Y92.009 Unspecified place in unspecified non-institutional (private) residence as the place of occurrence of the external cause; Z87.442 Personal history of urinary calculi; Z86.14 Personal history of Methicillin resistant Staphylococcus aureus infection; Z56.0 Unemployment, unspecified
CPT/HCPCS: 36415; 70450; 71010; 72125; 80053; 80307; 80320; 80329; 81003; 82550; 82553; 83605; 83880; 84443; 84484; 85025; 87040; 87077; 87150; 87205; 87641; 93005; A9270-GY; G0480; J1630; J2060; J2405; J3486

== ENCOUNTER 2017-07-04 14:45 | Emergency (ER) | payer OTHER ==
[2017-07-04 17:00] VITALS: BP 127/85
--- NOTE | 2017-07-20 20:24 | ED ---
Sonia Chauhan Abhishek, scribed for Gee Wright MD on 07/04/17 at 1549 . Skin Complaint - HPI Summary HPI Summary: his patient is a 31 year old M presenting to [facility] with a skin complaint. Patient believes he has MRSA in the back of his leg since 06/04/17. The patient rates the pain 0/10 in severity. Symptoms aggravated by nothing. Symptoms alleviated by nothing. Patient reports pruritus from sores. Patient denies SI, and HI. We reviewed allergies and medications. Patient reports to be seeing grief counseling. - History of Current Complaint Chief Complaint: EDRashSkinAbscess Time Seen by Provider: 07/04/17 15:28 Stated Complaint: SORES ALL OVER Hx Obtained From: Patient Onset/Duration: Started Weeks Ago, Still Present Timing: Constant Pain Intensity: 0 Pain Scale Used: 0-10 Numeric Skin Location: Diffuse, Leg Aggravating Symptom(s): Nothing Alleviating Symptom(s): Nothing - Additional Pertinent History Primary Care Physician: VIKKI - Allergy/Home Medications Allergies/Adverse Reactions: Allergies Allergy/AdvReac Type Severity Reaction Status Date / Time No Known Allergies Allergy Verified 05/11/17 12:36 PMH/Surg Hx/FS Hx/Imm Hx Endocrine/Hematology History: Denies: Hx Diabetes, Hx Thyroid Disease Cardiovascular History: Denies: Hx Hypertension Respiratory History: Reports: Hx Asthma - Child Denies: Hx Chronic Obstructive Pulmonary Disease (COPD) GI History: Denies: Hx Ulcer History: Denies: Hx Acute Renal Failure, Hx Chronic Renal Failure Sensory History: Comment Only: Hx Contacts or Glasses - Unknown, Hx Hearing Aid - Unknown Opthamlomology History: Comment Only: Hx Contacts or Glasses - Unknown Neurological History: Denies: Hx Headaches, Hx Migraine Psychiatric History: Reports: Hx Substance Abuse - Surgical History Surgery Procedure, Year, and Place: 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 - Immunization History Immunizations Up to Date: Yes Infectious Disease History: No Infectious Disease History: Reports: Hx Hepatitis - hep c Denies: Hx Clostridium Difficile, Hx Human Immunodeficiency Virus (HIV), Hx Known/Suspected VRSA, History Other Infectious Disease, Traveled Outside the [place] in Last 30 Days - Family History Known Family History: Positive: Cardiac Disease, Hypertension - Social History Alcohol Use: Unknown Hx Substance Use: Yes Substance Use Type: Reports: None Substance Use Comment - Amount & Last Used: hx of IV drug use Hx Tobacco Use: Yes Smoking Status (MU): Current Every Day Smoker Type: Cigarettes Amount Used/How Often: 1/2 - 1 ppd Have You Smoked in the Last Year: Yes Review of Systems Constitutional: Negative Eyes: Negative ENT: Negative Cardiovascular: Negative Respiratory: Negative Gastrointestinal: Negative Genitourinary: Negative Musculoskeletal: Negative Skin: Other Positive: Other - "Sores" diffuse around his body and lower extremities Neurological: Negative Psychological: Other - Negative SI, and HI All Other Systems Reviewed And Are Negative: Yes Physical Exam - Summary Physical Exam Summary: Constitutional: Well-developed, Well-nourished, Alert. (-) Distressed Skin: Numerous excoriations on his arms and legs which are round. No surrounding erythema, likely secondary to picking behavior. HENT: Normocephalic; Atraumatic Eyes: Conjunctiva normal Neck: Musculoskeletal ROM normal neck. (-) JVD, (-) Stridor, (-) Tracheal deviation Cardio: Rhythm regular, rate normal, Heart sounds normal; Intact distal pulses; The pedal pulses are 2+ and symmetric. Radial pulses are 2+ and symmetric. (-) Murmur Pulmonary/Chest wall: Effort normal. (-) Respiratory distress, (-) Wheezes, (-) Rales Abd: Soft, (-) Tenderness, (-) Distension, (-) Guarding, (-) Rebound Musculoskeletal: (-) Edema Lymph: (-) Cervical adenopathy Neuro: Alert, Oriented x3 Psych: Mood and affect Normal Triage Information Reviewed: Yes Vital Signs On Initial Exam: Initial Vitals Temp Pulse Resp BP Pulse Ox 96.6 F 100 19 130/79 97 07/04/17 14:49 07/04/17 14:49 07/04/17 14:49 07/04/17 14:49 07/04/17 14:49 Vital Signs Reviewed: Yes - Ramakrishna Coma Scale Coma Scale Total: 15 Diagnostics - Vital Signs Vital Signs Temp Pulse Resp BP Pulse Ox 07/04/17 14:49 96.6 F 100 19 130/79 97 - Laboratory Lab Statement: Any lab studies that have been ordered have been reviewed, and results considered in the medical decision making process. Course/Dx - Course Course Of Treatment: This patient is a 31 year old M presenting to [facility] with a skin complaint. Patient believes he has MRSA in the back of his leg since . The patient rates the pain 0/10 in severity. Symptoms aggravated by nothing. Symptoms alleviated by nothing. Patient reports pruritus. Patient denies SI, and HI. We reviewed allergies and medications. Patient reports to be seeing grief counseling. The patient will be discharged home. The Dx will be picking behavior, abrasion and excoriation. - Diagnoses Provider Diagnoses: Picking own skin, Excoriation (skin-picking) disorder, Abrasion Discharge - Discharge Plan Condition: Stable Disposition: HOME Prescriptions: Cephalexin CAP* [Keflex CAP*] 500 mg PO QID #40 cap Sulfamethox/Trimethoprim DS* [Bactrim DS 800/160 TAB*] 1 tab PO DAILY #20 tab Patient Education Materials: Abrasion (ED) Referrals: [facility] [place] [facility] [Outside] (Follow up with PCP as needed) No Primary Care Phys,NOPCP [Primary Care Provider] - The documentation as recorded by the Sonia boyd Abhishek accurately reflects the service I personally performed and the decisions made by me, Gee Wright MD.
== END 2017-07-04 16:14 | disposition home or self-care (01) ==
LOC: ED 14:45
DX: F42.4 Excoriation (skin-picking) disorder (principal); T14.8XXA Other injury of unspecified body region, initial encounter; X58.XXXA Exposure to other specified factors, initial encounter; Y92.9 Unspecified place or not applicable
CPT/HCPCS: 99282

== ENCOUNTER 2017-07-17 20:01 | Emergency (ER) | payer OTHER ==
[2017-07-17] MEDS ORDERED: Ondansetron INJ* 2 MG/ML VIAL IV ONE (20:49)
[2017-07-17] MEDS ORDERED: NS 0.9% 1000 ML* 3,000 ML IV ONE (20:49)
[2017-07-17 21:30] LABS: ABS Basophils 0.1 10^3/ul (0-0.2); ABS Eosinophils 0.3 10^3/ul (0-0.6); ABS Lymphocytes 2.6 10^3/ul (1.0-4.8); ABS Neutrophils 4.8 10^3/ul (1.5-7.7); ABS Nucleated RBC 0 10^3/ul; Eosinophil % 3.9 % (0-6); Hematocrit 40 % (42-52); Hemoglobin 13.3 g/dl (14.0-18.0); Lymphocyte % 29.3 % (25-47); Mean Corpuscular HGB Conc 33 g/dl (31-36); Mean Corpuscular Hemoglobin 27 pg (27-31); Mean Corpuscular Volume 80 fL (80-94); Mean Platelet Volume 7 um3 (7.4-10.4); Nucleated Red Blood Cells % 0; Platelet Count 311 10^3/ul (150-450); Red Blood Count 4.98 10^6/ul (4.0-5.4); Red Cell Distribution Width 17 % (10.5-15); White Blood Count 8.8 10^3/ul (3.5-10.8)
[2017-07-17 21:42] LABS: EGFR Non-African American 163.4 (>60)
[2017-07-17 21:43] LABS: INR 0.87 (0.77-1.02)
[2017-07-17] MEDS ORDERED: Iohexol 300* (CONTRAST) 10 ML SDV IV ONE (22:06)
--- NOTE | 2017-07-18 01:45 | ED ---
Sonia Chauhan Abhishek, scribed for Sandy Márquez MD on 07/18/17 at 0104 . Progress - Progress Note Progress Note: The pt was signed out by Dr. Conn awaiting CT A/P and pending disposition. - Results/Orders Results/Orders: CT A/P reveals mild splenomegaly is new from the previous study and horseshoe kidney. The ED physician has reviewed this radiology report. Course/Dx - Course Course Of Treatment: The pt will be discharged home and with a dx of diarrhea. We offered the patient contact information for rehabilitation clinic. Pt deffered the recommendation. - Diagnoses Provider Diagnoses: Diarrhea The documentation as recorded by the Sonia boyd Abhishek accurately reflects the service I personally performed and the decisions made by , Sandy Márquez MD.
[2017-07-18 02:07] VITALS: BP 113/64
--- NOTE | 2017-07-18 07:25 | RAD ---
INDICATION: Left lower quadrant pain and diarrhea. COMPARISON: Comparison is made with a prior CT of the abdomen and pelvis from April 10, 2014. TECHNIQUE: A CT scan of the abdomen and pelvis was performed with intravenous and oral contrast following intravenous injection of 85 ml of Omnipaque 300 nonionic contrast. Contiguous axial sections were obtained from the lung bases through the symphysis pubis. Images were reconstructed in the coronal and sagittal planes. FINDINGS: There is mild dependent bilateral lower lobe subsegmental atelectasis. No pleural effusion is present. The liver is normal in size without significant focal abnormality. The gallbladder appears contracted. No calcified gallstones are seen. The spleen is mildly enlarged and unchanged from the prior exam. The pancreas appears to be within normal limits. There is a horseshoe-shaped kidney. There is a tiny 1 mm nonobstructing calculus in the inferior medial aspect of the left renal moiety. No hydronephrosis or focal renal abnormality is seen. The aorta is normal in caliber and demonstrates homogeneous contrast opacification. No significant enlarged retroperitoneal lymph nodes are seen. The stomach is filled with food debris. The small bowel and colon appear nondistended. The appendix is within normal limits. There is a large amount retained stool present throughout the colon suggestive of constipation. There is no evidence for diverticulitis or colitis. No free intraperitoneal air or fluid is seen. No significant focal osseous abnormality is seen. IMPRESSION: 1. NO EVIDENCE FOR ACUTE FINDING OR CAUSE FOR THE PATIENT'S ABDOMINAL PAIN IS SEEN. 2. LARGE AMOUNT OF STOOL THROUGHOUT THE COLON SUGGESTIVE OF CONSTIPATION. 3. MILD SPLENOMEGALY UNCHANGED. 4. 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
--- NOTE | 2017-07-19 04:42 | ED ---
Jose Chauhan Tecjoon, scribed for Terrance Conn MD on 07/17/17 at 2056 . GI/ HPI - HPI Summary HPI Summary: This patient is a 31 year old male presenting to [facility] with a chief complaint of diarrhea and vomiting since yesterday. Patient states that he was fine 2 days ago. Patient also complains of left abdominal pain. The pain is rated 6/10 in severity. Symptoms aggravated by nothing. Symptoms alleviated by nothing. Patient additionally reports nausea, fever, dehydration, smelly diarrhea. Patient denies dry mouth, lightheadedness, blood in stool. Patient is currently taking Keflex and Bactrum. - History of Current Complaint Chief Complaint: EDNauseaVomitDiarrh Time Seen by Provider: 07/17/17 20:42 Stated Complaint: ABD PAIN/DIARRHEA Hx Obtained From: Patient Onset/Duration: Started Days Ago - 1, Still Present Timing: Constant Current Severity: Moderate Pain Intensity: 6 - /10 Location of Pain: LLQ Associated Signs and Symptoms: Positive: Negative - dry mouth, lightheadedness, blood in stool, Other: - nausea, fever, dehydration, smelly diarrhea - Additional Pertinent History Primary Care Physician: [id number] - Allergy/Home Medications Allergies/Adverse Reactions: Allergies Allergy/AdvReac Type Severity Reaction Status Date / Time No Known Allergies Allergy Verified 05/11/17 12:36 PMH/Surg Hx/FS Hx/Imm Hx Previously Healthy: No Endocrine/Hematology History: Denies: Hx Diabetes, Hx Thyroid Disease Cardiovascular History: Denies: Hx Hypertension Respiratory History: Reports: Hx Asthma - Child Denies: Hx Chronic Obstructive Pulmonary Disease (COPD) GI History: Denies: Hx Ulcer History: Denies: Hx Acute Renal Failure, Hx Chronic Renal Failure Sensory History: Comment Only: Hx Contacts or Glasses - Unknown, Hx Hearing Aid - Unknown Opthamlomology History: Comment Only: Hx Contacts or Glasses - Unknown Neurological History: Reports: Hx Seizures Denies: Hx Headaches, Hx Migraine Psychiatric History: Reports: Hx Anxiety, Hx Attention Deficit Hyperactivity Disorder, Hx Eating Disorder, Hx Depression, Hx Post Traumatic Stress Disorder, Hx Inpatient Treatment, Hx Community Mental Health Tx, Hx Suicide Attempt, Hx of Violent Episodes Against Others, Hx Substance Abuse Denies: Hx Panic Disorder, Hx Bipolar Disorder - Surgical History Surgery Procedure, Year, and Place: 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 Infectious Disease History: No Infectious Disease History: Reports: Hx Hepatitis - hep c, Hx of Known/ Suspected MRSA - CONFIRMED NASAL PASSAGES Denies: Hx Clostridium Difficile, Hx Human Immunodeficiency Virus (HIV), Hx Known/Suspected VRSA, History Other Infectious Disease, Traveled Outside the [place] in Last 30 Days - Family History Known Family History: Positive: Cardiac Disease, Hypertension - Social History Alcohol Use: Weekly Hx Substance Use: Yes Substance Use Type: Reports: Heroin, Marijuana Substance Use Comment - Amount & Last Used: 2 weeks ago Hx Tobacco Use: Yes Smoking Status (MU): Current Every Day Smoker Type: Cigarettes Amount Used/How Often: 1/2 - 1 ppd Length of Time of Smoking/Using Tobacco: 20 YEARS Have You Smoked in the Last Year: Yes Review of Systems Positive: Fever ENT: Negative - dry mouth Gastrointestinal: Negative - blood in stool Positive: Abdominal Pain, Vomiting, Diarrhea, Nausea Neurological: Negative - lightheadedness All Other Systems Reviewed And Are Negative: Yes Physical Exam - Summary Physical Exam Summary: General: ill-appearing, mild pain distress Skin: warm, color reflects adequate perfusion, dry Head: normal Eyes: EOMI, KIYA ENT: oral mucosa slightly dry Neck: supple, nontender Respiratory: CTA, breath sounds present Cardiovascular: RRR Abdomen: soft, tender to palpation at LLQ. Bowel: hypoactive bowel sounds Musculoskeletal: normal, strength/ROM intact Neurological: normal, sensory/motor intact, A&O x3 Psychological: affect/mood appropriate Triage Information Reviewed: Yes Vital Signs On Initial Exam: Initial Vitals Temp Pulse Resp BP Pulse Ox 99.4 F 78 18 128/59 99 07/17/17 20:09 07/17/17 20:09 07/17/17 20:09 07/17/17 20:09 07/17/17 20:09 Vital Signs Reviewed: Yes Diagnostics - Vital Signs Vital Signs Temp Pulse Resp BP Pulse Ox 07/17/17 20:09 99.4 F 78 18 128/59 99 - Laboratory Lab Results: Lab Results 07/17/17 07/17/17 07/17/17 Range/Units 21:12 21:12 21:12 WBC 8.8 (3.5-10.8) 10^3/ul RBC 4.98 (4.0-5.4) 10^6/ul Hgb 13.3 L (14.0-18.0) g/dl Hct 40 L (42-52) % MCV 80 (80-94) fL MCH 27 (27-31) pg MCHC 33 (31-36) g/dl RDW 17 H (10.5-15) % Plt Count 311 (150-450) 10^3/ul MPV 7 L (7.4-10.4) um3 Neut % (Auto) 54.5 (38-83) % Lymph % (Auto) 29.3 (25-47) % [place] % (Auto) 11.3 H (1-9) % Eos % (Auto) 3.9 (0-6) % Baso % (Auto) 1.0 (0-2) % Absolute Neuts (auto) 4.8 (1.5-7.7) 10^3/ul Absolute Lymphs (auto) 2.6 (1.0-4.8) 10^3/ul Absolute Monos (auto) 1.0 H (0-0.8) 10^3/ul Absolute Eos (auto) 0.3 (0-0.6) 10^3/ul Absolute Basos (auto) 0.1 (0-0.2) 10^3/ul Absolute Nucleated RBC 0 10^3/ul Nucleated RBC % 0 INR (Anticoag Therapy) 0.87 (0.77-1.02) APTT 32.4 (26.0-36.3) seconds Sodium 138 (133-145) mmol/L Potassium TNP Chloride 106 (101-111) mmol/L Carbon Dioxide 27 (22-32) mmol/L Anion Gap 5 (2-11) mmol/L BUN 11 (6-24) mg/dL Creatinine 0.58 L (0.67-1.17) mg/dL Est GFR ( Amer) 210.2 (>60) Est GFR (Non-Af Amer) 163.4 (>60) BUN/Creatinine Ratio 19.0 (8-20) Glucose 99 (70-100) mg/dL Lactic Acid (0.5-2.0) mmol/L Calcium 8.2 L (8.6-10.3) mg/dL Magnesium 2.0 (1.9-2.7) mg/dL Total Bilirubin 0.40 (0.2-1.0) mg/dL AST TNP ALT 76 H (7-52) U/L Alkaline Phosphatase 62 (34-104) U/L C-Reactive Protein 16.42 H (< 5.00) mg/L Total Protein 6.2 L (6.4-8.9) g/dL Albumin 3.3 (3.2-5.2) g/dL Globulin 2.9 (2-4) g/dL Albumin/Globulin Ratio 1.1 (1-3) Lipase 34 (11.0-82.0) U/L 07/17/17 07/17/17 Range/Units 21:12 21:49 WBC (3.5-10.8) 10^3/ul RBC (4.0-5.4) 10^6/ul Hgb (14.0-18.0) g/dl Hct (42-52) % MCV (80-94) fL MCH (27-31) pg MCHC (31-36) g/dl RDW (10.5-15) % Plt Count (150-450) 10^3/ul MPV (7.4-10.4) um3 Neut % (Auto) (38-83) % Lymph % (Auto) (25-47) % [place] % (Auto) (1-9) % Eos % (Auto) (0-6) % Baso % (Auto) (0-2) % Absolute Neuts (auto) (1.5-7.7) 10^3/ul Absolute Lymphs (auto) (1.0-4.8) 10^3/ul Absolute Monos (auto) (0-0.8) 10^3/ul Absolute Eos (auto) (0-0.6) 10^3/ul Absolute Basos (auto) (0-0.2) 10^3/ul Absolute Nucleated RBC 10^3/ul Nucleated RBC % INR (Anticoag Therapy) (0.77-1.02) APTT (26.0-36.3) seconds Sodium (133-145) mmol/L Potassium 3.4 L Chloride (101-111) mmol/L Carbon Dioxide (22-32) mmol/L Anion Gap (2-11) mmol/L BUN (6-24) mg/dL Creatinine (0.67-1.17) mg/dL Est GFR ( Amer) (>60) Est GFR (Non-Af Amer) (>60) BUN/Creatinine Ratio (8-20) Glucose (70-100) mg/dL Lactic Acid 1.7 (0.5-2.0) mmol/L Calcium (8.6-10.3) mg/dL Magnesium (1.9-2.7) mg/dL Total Bilirubin (0.2-1.0) mg/dL AST 40 H ALT (7-52) U/L Alkaline Phosphatase (34-104) U/L C-Reactive Protein (< 5.00) mg/L Total Protein (6.4-8.9) g/dL Albumin (3.2-5.2) g/dL Globulin (2-4) g/dL Albumin/Globulin Ratio (1-3) Lipase (11.0-82.0) U/L Result Diagrams: 07/17/17 21:12 07/17/17 21:49 Lab Statement: Any lab studies that have been ordered have been reviewed, and results considered in the medical decision making process. GIGU Course/Dx - Course Course Of Treatment: DISPOSITION PENDING AT SHIFT CHANGE - Diagnoses Provider Diagnoses: Diarrhea, Abdominal pain Discharge - Discharge Plan Condition: Stable Disposition: HOME Patient Education Materials: Acute Diarrhea (ED) Referrals: [facility] PHYSICIAN REFERRAL [Outside] No Primary Care Phys,NOPCP [Primary Care Provider] - Additional Instructions: return if worse or any new symptoms. Follow up with your primary care physician on Wednesday. Please start attending an outpatient drug rehab program. TAke all prescribed medicines as instructed. The documentation as recorded by the Jose boyd Tecjoon accurately reflects the service I personally performed and the decisions made by me, Terrance Conn MD.
== END 2017-07-18 02:11 | disposition home or self-care (01) ==
LOC: ED 20:01
DX: R19.7 Diarrhea, unspecified (principal); R10.32 Left lower quadrant pain; R11.2 Nausea with vomiting, unspecified; F17.210 Nicotine dependence, cigarettes, uncomplicated
CPT/HCPCS: 36415; 74177; 80053; 83605; 83690; 83735; 85025; 85610; 85730; 86140; 96361; 96374; 99284; J2405; Q9967

== ENCOUNTER 2017-07-30 22:29 | Emergency (ER) | payer OTHER ==
[2017-07-31 01:47] LABS: Urine Appearance Cloudy; Urine Blood Negative (Negative); Urine Color Yellow; Urine Ketones Negative (Negative); Urine Protein Negative (Negative); Urine Specific Gravity 1.029 (1.010-1.030); Urine Urobilinogen Negative (Negative)
--- NOTE | 2017-07-31 01:57 | ED ---
Dru Chauhan Stephanie, scribed for Geraldine Fernandez MD on 07/31/17 at 0146 . GI/ HPI - HPI Summary HPI Summary: The pt is a 32 y/o M presenting to the ED with c/o hematuria that began 1 week ago. Symptoms include decreased frequency of urination, dysuria and bilateral flank pain. - History of Current Complaint Chief Complaint: EDUrogenitalProblems Time Seen by Provider: 07/30/17 23:26 Stated Complaint: URINATING BLOOD Hx Obtained From: Patient Onset/Duration: Started Weeks Ago - 1, Still Present Timing: Constant Current Severity: Mild Pain Intensity: 4 Location of Pain: Radiates to:, Flank - bilateral Pain Radiates to: Flank Associated Signs and Symptoms: Positive: Hematuria, Dysuria, Flank Pain, Other: - decreased urinary frequency Aggravating Factor(s): Urination Alleviating Factor(s): Nothing - Additional Pertinent History Primary Care Physician: VIKKI - Allergy/Home Medications Allergies/Adverse Reactions: Allergies Allergy/AdvReac Type Severity Reaction Status Date / Time No Known Allergies Allergy Verified 05/11/17 12:36 PMH/Surg Hx/FS Hx/Imm Hx Endocrine/Hematology History: Denies: Hx Diabetes, Hx Thyroid Disease Cardiovascular History: Denies: Hx Hypertension Respiratory History: Reports: Hx Asthma - Child Denies: Hx Chronic Obstructive Pulmonary Disease (COPD) GI History: Denies: Hx Ulcer History: Denies: Hx Acute Renal Failure, Hx Chronic Renal Failure Sensory History: Comment Only: Hx Contacts or Glasses - Unknown, Hx Hearing Aid - Unknown Opthamlomology History: Comment Only: Hx Contacts or Glasses - Unknown Neurological History: Reports: Hx Seizures Denies: Hx Headaches, Hx Migraine Psychiatric History: Reports: Hx Anxiety, Hx Attention Deficit Hyperactivity Disorder, Hx Eating Disorder, Hx Depression, Hx Post Traumatic Stress Disorder, Hx Inpatient Treatment, Hx Community Mental Health Tx, Hx Suicide Attempt, Hx of Violent Episodes Against Others, Hx Substance Abuse Denies: Hx Panic Disorder, Hx Bipolar Disorder - Surgical History Surgery Procedure, Year, and Place: 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 Infectious Disease History: Yes Infectious Disease History: Reports: Hx Hepatitis - hep c, Hx of Known/ Suspected MRSA - CONFIRMED NASAL PASSAGES Denies: Hx Clostridium Difficile, Hx Human Immunodeficiency Virus (HIV), Hx Known/Suspected VRSA, History Other Infectious Disease, Traveled Outside the [place] in Last 30 Days - Family History Known Family History: Positive: Cardiac Disease, Hypertension - Social History Occupation: Employed Part-time Lives: With Family Alcohol Use: Weekly Hx Substance Use: Yes Substance Use Type: Reports: Heroin, Marijuana Substance Use Comment - Amount & Last Used: 2 weeks ago Hx Tobacco Use: Yes Smoking Status (MU): Current Every Day Smoker Type: Cigarettes Amount Used/How Often: 1/2 - 1 ppd Length of Time of Smoking/Using Tobacco: 20 YEARS Have You Smoked in the Last Year: Yes Review of Systems Negative: Fever Positive: dysuria, frequency - decreased, flank pain, hematuria All Other Systems Reviewed And Are Negative: Yes Physical Exam - Summary Physical Exam Summary: VITAL SIGNS: Reviewed. GENERAL: Patient is a well-developed and nourished MALE who is lying comfortable in the stretcher. Patient is not in any acute respiratory distress. HEAD AND FACE: No signs of trauma. No ecchymosis, hematomas or skull depressions. No sinus tenderness. EYES: PERRLA, EOMI x 2, No injected conjunctiva, no nystagmus. EARS: Hearing grossly intact. Ear canals and tympanic membranes are within normal limits. MOUTH: Oropharynx within normal limits. NECK: Supple, trachea is midline, no adenopathy, no JVD, no carotid bruit, no c- spine tenderness, neck with full ROM. CHEST: Symmetric, no tenderness at palpation LUNGS: Clear to auscultation bilaterally. No wheezing or crackles. CVS: Regular rate and rhythm, S1 and S2 present, no murmurs or gallops appreciated. ABDOMEN: Soft, non-tender. No signs of distention. No rebound no guarding, and no masses palpated. Bowel sounds are normal. EXTREMITIES: FROM in all major joints, no edema, no cyanosis or clubbing. NEURO: Alert and oriented x 3. No acute neurological deficits. Speech is normal and follows commands. SKIN: Dry and warm Triage Information Reviewed: Yes Vital Signs On Initial Exam: Initial Vitals Temp Pulse Resp BP Pulse Ox 98.8 F 90 16 134/76 99 07/30/17 22:36 07/30/17 22:36 07/30/17 22:36 07/30/17 22:36 07/30/17 22:36 Vital Signs Reviewed: Yes - [place] Coma Scale Coma Scale Total: 15 Diagnostics - Vital Signs Vital Signs Temp Pulse Resp BP Pulse Ox 07/30/17 22:36 98.8 F 90 16 134/76 99 - Laboratory Lab Statement: Any lab studies that have been ordered have been reviewed, and results considered in the medical decision making process. GIGU Course/Dx - Course Course Of Treatment: ED physician discussed lab test with the pt. The pt will be discharged and advised to follow up with an urologist. - Diagnoses Provider Diagnoses: Dysuria Discharge - Discharge Plan Condition: Stable Disposition: HOME Patient Education Materials: Dysuria (ED) Referrals: No Primary Care Phys,NOPCP [Primary Care Provider] - Additional Instructions: RETURN TO EMERGENCY DEPARTMENT FOR ANY NEW OR WORSENING SYMPTOMS. Follow up with urologist. The documentation as recorded by the Dru boyd Stephanie accurately reflects the service I personally performed and the decisions made by Jim renner Abdul, MD.
[2017-07-31 02:13] VITALS: BP 127/78
== END 2017-07-31 02:05 | disposition home or self-care (01) ==
LOC: ED 22:29
DX: R30.0 Dysuria (principal); R31.9 Hematuria, unspecified; R10.84 Generalized abdominal pain; F17.210 Nicotine dependence, cigarettes, uncomplicated
CPT/HCPCS: 81003; 99282

== ENCOUNTER 2017-12-15 15:55 | Emergency (ER) | payer OTHER ==
[2017-12-15 17:14] VITALS: BP 120/60
--- NOTE | 2017-12-15 18:00 | ED ---
Tobi Chauhan Tiffany, scribed for Alcides Cabrera MD on 12/15/17 at 1725 . Skin Complaint - HPI Summary HPI Summary: 32 y/o M presenting to [facility] complains of lesions on bilateral arms since . Pt rates the pain 3/10 in severity. Symptoms aggravated by nothing. Symptoms alleviated by nothing. Pt reports lesions on his face. Hx heroin abuse. Pt states he uses clean needs every time. - History of Current Complaint Chief Complaint: EDRashSkinAbscess Time Seen by Provider: 12/15/17 16:29 Stated Complaint: SKIN ISSUE/POSS MRSA Hx Obtained From: Patient Onset/Duration: Started Weeks Ago - 12/05/17, Still Present Current Severity: Mild Pain Intensity: 3 Pain Scale Used: 0-10 Numeric Skin Location: Other: - bilateral arms, face Aggravating Symptom(s): Nothing Alleviating Symptom(s): Nothing - Additional Pertinent History Primary Care Physician: VIKKI - Allergy/Home Medications Allergies/Adverse Reactions: Allergies Allergy/AdvReac Type Severity Reaction Status Date / Time No Known Allergies Allergy Verified 12/15/17 16:02 PMH/Surg Hx/FS Hx/Imm Hx Previously Healthy: No Endocrine/Hematology History: Denies: Hx Diabetes, Hx Thyroid Disease Cardiovascular History: Denies: Hx Hypertension Respiratory History: Reports: Hx Asthma - Child Denies: Hx Chronic Obstructive Pulmonary Disease (COPD) GI History: Denies: Hx Ulcer History: Denies: Hx Acute Renal Failure, Hx Chronic Renal Failure Sensory History: Comment Only: Hx Contacts or Glasses - Unknown, Hx Hearing Aid - Unknown Opthamlomology History: Comment Only: Hx Contacts or Glasses - Unknown Neurological History: Reports: Hx Seizures Denies: Hx Headaches, Hx Migraine Psychiatric History: Reports: Hx Anxiety, Hx Attention Deficit Hyperactivity Disorder, Hx Eating Disorder, Hx Depression, Hx Post Traumatic Stress Disorder, Hx Inpatient Treatment, Hx Community Mental Health Tx, Hx Suicide Attempt, Hx of Violent Episodes Against Others, Hx Substance Abuse Denies: Hx Panic Disorder, Hx Bipolar Disorder - Surgical History Surgery Procedure, Year, and Place: 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 Infectious Disease History: No Infectious Disease History: Reports: Hx Hepatitis - hep c, Hx of Known/ Suspected MRSA - CONFIRMED NASAL PASSAGES Denies: Hx Clostridium Difficile, Hx Human Immunodeficiency Virus (HIV), Hx Known/Suspected VRSA, History Other Infectious Disease, Traveled Outside the [place] in Last 30 Days - Family History Known Family History: Positive: Cardiac Disease, Hypertension - Social History Alcohol Use: Weekly Hx Substance Use: Yes Substance Use Type: Reports: Heroin, Marijuana Substance Use Comment - Amount & Last Used: 2 weeks ago Hx Tobacco Use: Yes Smoking Status (MU): Current Every Day Smoker Type: Cigarettes Amount Used/How Often: 1/2 - 1 ppd Length of Time of Smoking/Using Tobacco: 20 YEARS Have You Smoked in the Last Year: Yes Review of Systems Negative: Fever Positive: Other - lesions on bilateral arms, face All Other Systems Reviewed And Are Negative: Yes Physical Exam - Summary Physical Exam Summary: Appearance: Well appearing, no pain distress Skin: warm, dry, reflects adequate perfusion Head/face: normal Eyes: EOMI, KIYA ENT: normal Neck: supple, non-tender Respiratory: CTA, breath sounds present Cardiovascular: RRR, pulses symmetrical Abdomen: non-tender, soft Bowel Sounds: present Musculoskeletal: normal, strength/ROM intact Neuro: normal, sensory motor intact, A&Ox3 Skin: Multiple excoriation lesions on arms, old healing scars from injuries, erythema around lesions, most are scabbed. Areas on his face with excoriation lesion with erythema Triage Information Reviewed: Yes Vital Signs On Initial Exam: Initial Vitals Temp Pulse Resp BP Pulse Ox 97.6 F 73 17 113/66 99 12/15/17 15:59 12/15/17 15:59 12/15/17 15:59 12/15/17 15:59 12/15/17 15:59 Vital Signs Reviewed: Yes Diagnostics - Vital Signs Vital Signs Temp Pulse Resp BP Pulse Ox 12/15/17 15:59 97.6 F 73 17 113/66 99 - Laboratory Lab Statement: Any lab studies that have been ordered have been reviewed, and results considered in the medical decision making process. Course/Dx - Course Course Of Treatment: Patient is a long-term IV drug user and also has a history of anxiety and self excoriates. Number these are superficially infected. None are abscessed. I placed him on antibiotics and gave him chlorhexidine soap for home use. He is given care clinic follow-up and he refused any resources having to do with drug resources/rehabilitation. - Diagnoses Provider Diagnoses: IV drug abuse, Multiple excoriations, Cellulitis Discharge - Sign-Out/Discharge Documenting (check all that apply): Discharge/Admit/Transfer - Discharge Plan Condition: Fair Disposition: HOME Prescriptions: Sulfamethox/Trimethoprim DS* [Bactrim DS 800/160 TAB*] 2 tab PO BID #28 tab Patient Education Materials: Cellulitis (ED), Polysubstance Abuse (ED) Referrals: [facility] [Outside] [facility] [Outside] Additional Instructions: Used the soap provided to clean the skin every week until gone. Always cleaning the skin prior to injection. We are always available to help with her addiction if he so desire. Return with fever, illness, abscesses or boils, worse or other concerns. - Billing Disposition and Condition Condition: FAIR Disposition: Home The documentation as recorded by the Tobi boyd Tiffany accurately reflects the service I personally performed and the decisions made by me, Alcides Cabrera MD.
== END 2017-12-15 17:13 | disposition home or self-care (01) ==
LOC: ED 15:55
DX: S40.812A Abrasion of left upper arm, initial encounter (principal); S40.811A Abrasion of right upper arm, initial encounter; L03.114 Cellulitis of left upper limb; L03.113 Cellulitis of right upper limb; X58.XXXA Exposure to other specified factors, initial encounter; Y92.9 Unspecified place or not applicable; F11.10 Opioid abuse, uncomplicated; F41.9 Anxiety disorder, unspecified; F17.210 Nicotine dependence, cigarettes, uncomplicated
CPT/HCPCS: 99281

== ENCOUNTER 2018-04-18 10:17 | Emergency (ER) | payer OTHER ==
[2018-04-18] MEDS ORDERED: Haloperidol INJ IV/IM* 5 MG/ML AMP ONE (10:23)
[2018-04-18] MEDS ORDERED: Haloperidol INJ IV/IM* 5 MG/ML AMP IM ONE (10:27)
[2018-04-18] MEDS ORDERED: NS 0.9% 1000 ML* 1,000 ML IV ONE (10:38)
--- NOTE | 2018-04-18 10:46 | ED ---
Substance Abuse/Use - HPI Summary HPI Summary: This patient is a 32 year old male BIBA to [facility] with a chief complaint of heroin overdose since [employer]. Patient was found lying on the floor, slurring gibberish. Patients girlfriend stated that the patient had taken heroin. Patient was given Narcan, after which he became combative. Patient was then given ketamine to calm him down. In ED, patient is responsive and moaning, but unable to articulate speech. Level 5 Caveat: AMS - History Of Current Complaint Chief Complaint: EDSubstanceAbuse Stated Complaint: OVERDOSE Time Seen by Provider: 04/18/18 10:26 Hx Obtained From: EMS Hx From Patient Unobtainable Due To: Other - Level 5 Caveat - AMS, Overdose Onset/Duration of Drug/ETOH Abuse: Minutes Ingestion History: Type/Name Of Drug - Heroin Overdose Characteristics: IV Severity Currently: Moderate Character: Stuporous Aggravating Factor(s): Nothing Alleviating Factor(s): Nothing Associated Signs And Symptoms: Agitated, Altered Mental Status - Allergies/Home Medications Allergies/Adverse Reactions: Allergies Allergy/AdvReac Type Severity Reaction Status Date / Time No Known Allergies Allergy Verified 12/15/17 16:02 Home Medications: Home Medications Buprenorphine HCl/Naloxone HCl [Suboxone 12 mg-3 mg Sl Film] 1 film SL DAILY 02/26 [History Confirmed 04/18/18] Bupropion XL* [Wellbutrin XL *] 150 mg PO DAILY 04/18/18 [History Confirmed 02/26] Dexmethylphenidate HCl [Dexmethylphenidate HCl ER] 20 mg PO DAILY 04/18/18 [ History Confirmed 04/18/18] Gabapentin CAP(*) [Neurontin 400 mg CAP(*)] 800 mg PO QID 04/18/18 [History Confirmed 04/18/18] PMH/Surg Hx/FS Hx/Imm Hx Previously Healthy: No Endocrine/Hematology History: Denies: Hx Diabetes, Hx Thyroid Disease Cardiovascular History: Denies: Hx Hypertension Respiratory History: Reports: Hx Asthma - Child Denies: Hx Chronic Obstructive Pulmonary Disease (COPD) GI History: Denies: Hx Ulcer History: Denies: Hx Acute Renal Failure, Hx Chronic Renal Failure Sensory History: Comment Only: Hx Contacts or Glasses - Unknown, Hx Hearing Aid - Unknown Opthamlomology History: Comment Only: Hx Contacts or Glasses - Unknown Neurological History: Reports: Hx Seizures Denies: Hx Headaches, Hx Migraine Psychiatric History: Reports: Hx Anxiety, Hx Attention Deficit Hyperactivity Disorder, Hx Eating Disorder, Hx Depression, Hx Post Traumatic Stress Disorder, Hx Inpatient Treatment, Hx Community Mental Health Tx, Hx Suicide Attempt, Hx of Violent Episodes Against Others, Hx Substance Abuse Denies: Hx Panic Disorder, Hx Bipolar Disorder - Surgical History Surgery Procedure, Year, and Place: 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 Infectious Disease History: Yes Infectious Disease History: Reports: Hx Hepatitis - hep c, Hx of Known/ Suspected MRSA - CONFIRMED NASAL PASSAGES Denies: Hx Clostridium Difficile, Hx Human Immunodeficiency Virus (HIV), Hx Known/Suspected VRSA, History Other Infectious Disease, Traveled Outside the [place] in Last 30 Days - Family History Known Family History: Positive: Cardiac Disease, Hypertension - Social History Alcohol Use: Weekly Hx Substance Use: Yes Substance Use Type: Reports: Heroin, Marijuana Substance Use Comment - Amount & Last Used: 2 weeks ago Hx Tobacco Use: Yes Smoking Status (MU): Current Every Day Smoker Type: Cigarettes Amount Used/How Often: 1/2 - 1 ppd Length of Time of Smoking/Using Tobacco: 20 YEARS Have You Smoked in the Last Year: Yes Review of Systems Negative: Fever Positive: Slurred Speech Positive: Other - agitation All Other Systems Reviewed And Are Negative: No - Comments Additional Review of Systems Comments: Level 5 Caveat - AMS Physical Exam - Summary Physical Exam Summary: Appearance: Well-appearing, Well-nourished, lying in bed comfortable Skin: Warm, dry, no obvious rash Eyes: sclera anicteric, no conjunctival pallor ENT: mucous membranes moist Neck: deferred Respiratory: No signs of respiratory distress Cardiovascular: Appears well perfused, pulses are nml Abdomen: deferred Musculoskeletal: Moving all 4 extremities without obvious discomfort Neurological: Awake and alert, mentation is normal, speech is fluent and appropriate Psychiatric: affect is normal, does not appear anxious or depressed Triage Information Reviewed: Yes Vital Signs On Initial Exam: Initial Vitals Temp Pulse Resp BP Pulse Ox 98.6 F 120 19 149/111 97 04/18/18 10:30 04/18/18 10:30 04/18/18 10:30 04/18/18 10:30 04/18/18 10:30 Vital Signs Reviewed: Yes Completion Of Physical Exam Limited Due To: Altered Mental Status, Level 5 Diagnostics - Vital Signs Vital Signs Temp Pulse Resp BP Pulse Ox 04/18/18 10:30 98.6 F 120 19 149/111 97 - Laboratory Result Diagrams: 04/18/18 13:46 04/18/18 13:46 Lab Statement: Any lab studies that have been ordered have been reviewed, and results considered in the medical decision making process. - Radiology CXR Xray Interpretation: No Acute Changes - CXR reveals, per radiologist, IMPRESSION : No active cardiopulmonary disease. ED physician has reviewed this radiology report. Radiology Interpretation Completed By: Radiologist Course/Dx - Course Assessment/Plan: This patient is a 32 year old male BIBA to [facility] with a chief complaint of heroin overdose since [employer]. Patient was found lying on the floor, slurring gibberish. Patients girlfriend stated that the patient had taken heroin. Patient was given Narcan, after which he became combative. Patient was then given ketamine to calm him down. In ED, patient is responsive and moaning, but unable to articulate speech. CXR reveals, per radiologist, IMPRESSION: No active cardiopulmonary disease. ED physician has reviewed this radiology report. Bloodwork Obtained. In the ED course the patient was given NS 0.9% bolus IV, Haldol IV 10mg. Patient will be discharged with a dx of narcotic abuse. Patient is advised to follow up with PCP in 3 days. The patient is agreeable with this plan. Discharge - Sign-Out/Discharge Documenting (check all that apply): Patient Departure - Discharge Plan Condition: Good Disposition: HOME Patient Education Materials: Narcotic Abuse (ED) Referrals: [facility],. [Z.BUSINESS, APPLICATION, OTHER] - - Attestation Statements Document Initiated by Scribe: Yes Documenting Scribe: Dorothy Garcia Provider For Whom Lorraine is Documenting (Include Credential): Bi Vazquez MD Scribe Attestation: Dorothy Chauhan, scribed for Bi Vazquez MD on 04/18/18 at 1924.
[2018-04-18 13:59] LABS: ABS Basophils 0.1 10^3/ul (0-0.2); ABS Eosinophils 0.1 10^3/ul (0-0.6); ABS Lymphocytes 1.3 10^3/ul (1.0-4.8); ABS Monocytes 0.7 10^3/ul (0-0.8); ABS Nucleated RBC 0 10^3/ul; Hematocrit 43 % (42-52); Hemoglobin 14.5 g/dl (14.0-18.0); Lymphocyte % 11.4 % (25-47); Mean Corpuscular HGB Conc 33 g/dl (31-36); Mean Corpuscular Hemoglobin 27 pg (27-31); Mean Corpuscular Volume 80 fL (80-94); Mean Platelet Volume 6.8 um3 (7.4-10.4); Nucleated Red Blood Cells % 0.1; Platelet Count 327 10^3/ul (150-450); Red Cell Distribution Width 15 % (10.5-15); White Blood Count 11.1 10^3/ul (3.5-10.8)
--- NOTE | 2018-04-18 14:11 | RAD ---
HISTORY: altered,?aspiration COMPARISONS: May 03, 2017 VIEWS: 1: frontal AP view of the chest at 2:03 PM FINDINGS: LINES AND TUBES: None. CARDIOMEDIASTINAL SILHOUETTE: The cardiomediastinal silhouette is normal for portable technique. PLEURA: The costophrenic angles are sharp. No pleural abnormalities are noted. LUNG PARENCHYMA: The lungs are clear. ABDOMEN: The upper abdomen is clear. There is no subphrenic gas. BONES AND SOFT TISSUES: No bone or soft tissue abnormalities are noted. IMPRESSION: NO ACTIVE CARDIOPULMONARY DISEASE.
[2018-04-18 14:12] LABS: EGFR Non-African American 139.9 (>60)
[2018-04-18 19:42] VITALS: BP 119/72
== END 2018-04-18 19:42 | disposition home or self-care (01) ==
LOC: ED 10:17
DX: T40.1X1A Poisoning by heroin, accidental (unintentional), initial encounter (principal); Y92.9 Unspecified place or not applicable; F17.210 Nicotine dependence, cigarettes, uncomplicated
CPT/HCPCS: 36415; 71045; 80053; 83605; 85025; 96360; 96372; 99285; J1630

== ENCOUNTER 2018-05-02 18:46 | Emergency (ER) | payer OTHER ==
--- NOTE | 2018-05-02 19:06 | ED ---
Substance Abuse/Use - HPI Summary HPI Summary: 32 y/o male brought to ED by police following overdose several hours [employer]. Pt was unconscious found by police on arrival, with shallow breathing. Pt injects heroin, relapsed around 1 week ago. Pt states he doesn't remember the episode today. Pt seen in the ED aroudn 1 week ago for a hallucinatory episode. Pt seen previously at [facility], has suboxone at home. Pt is asymptomatic at this time. - History Of Current Complaint Chief Complaint: EDSubstanceAbuse Stated Complaint: OVERDOSE Time Seen by Provider: 05/02/18 19:00 Hx Obtained From: Patient Ingestion History: Type/Name Of Drug - heroin Overdose Characteristics: IV Aggravating Factor(s): Nothing Alleviating Factor(s): Nothing Associated Signs And Symptoms: Negative - Allergies/Home Medications Allergies/Adverse Reactions: Allergies Allergy/AdvReac Type Severity Reaction Status Date / Time No Known Allergies Allergy Verified 05/02/18 19:05 PMH/Surg Hx/FS Hx/Imm Hx Previously Healthy: No Endocrine/Hematology History: Denies: Hx Diabetes, Hx Thyroid Disease Cardiovascular History: Denies: Hx Hypertension Respiratory History: Reports: Hx Asthma - Child Denies: Hx Chronic Obstructive Pulmonary Disease (COPD) GI History: Denies: Hx Ulcer History: Denies: Hx Acute Renal Failure, Hx Chronic Renal Failure Sensory History: Comment Only: Hx Contacts or Glasses - Unknown, Hx Hearing Aid - Unknown Opthamlomology History: Comment Only: Hx Contacts or Glasses - Unknown Neurological History: Reports: Hx Seizures Denies: Hx Headaches, Hx Migraine Psychiatric History: Reports: Hx Anxiety, Hx Attention Deficit Hyperactivity Disorder, Hx Eating Disorder, Hx Depression, Hx Post Traumatic Stress Disorder, Hx Inpatient Treatment, Hx Community Mental Health Tx, Hx Suicide Attempt, Hx of Violent Episodes Against Others, Hx Substance Abuse Denies: Hx Panic Disorder, Hx Bipolar Disorder - Surgical History Surgery Procedure, Year, and Place: 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 Infectious Disease History: Reports: Hx Hepatitis - hep c, Hx of Known/ Suspected MRSA - CONFIRMED NASAL PASSAGES Denies: Hx Clostridium Difficile, Hx Human Immunodeficiency Virus (HIV), Hx Known/Suspected VRSA, History Other Infectious Disease - Family History Known Family History: Positive: Cardiac Disease, Hypertension - Social History Alcohol Use: Weekly Hx Substance Use: Yes Substance Use Type: Reports: Heroin, Marijuana Substance Use Comment - Amount & Last Used: 2 weeks ago Hx Tobacco Use: Yes Smoking Status (MU): Current Every Day Smoker Type: Cigarettes Amount Used/How Often: 1/2 - 1 ppd Length of Time of Smoking/Using Tobacco: 20 YEARS Have You Smoked in the Last Year: Yes Review of Systems Constitutional: Negative Eyes: Negative ENT: Negative Cardiovascular: Negative Respiratory: Negative Gastrointestinal: Negative Genitourinary: Negative Musculoskeletal: Negative Skin: Negative Neurological: Negative Psychological: Normal All Other Systems Reviewed And Are Negative: Yes Physical Exam - Summary Physical Exam Summary: Appearance: Well-appearing, Well-nourished, lying in bed comfortable Skin: Warm, dry, no obvious rash Eyes: sclera anicteric, no conjunctival pallor ENT: mucous membranes moist Neck: deferred Respiratory: No signs of respiratory distress Cardiovascular: Appears well perfused, pulses are nml Abdomen: deferred Musculoskeletal: Moving all 4 extremities without obvious discomfort Neurological: Awake and alert, mentation is normal, speech is fluent and appropriate Psychiatric: affect is normal, does not appear anxious or depressed Triage Information Reviewed: Yes Vital Signs Reviewed: Yes Course/Dx - Course Assessment/Plan: 32 y/o male brought to ED by police following overdose several hours [employer]. Found unconscious by police and EMS. Narcan administered by EMS. Pt observed in ED for an hour prior to d/c. - Diagnoses Provider Diagnoses: Opioid overdose Discharge - Sign-Out/Discharge Documenting (check all that apply): Patient Departure - Discharge Plan Condition: Improved Disposition: HOME Patient Education Materials: Opioid Withdrawal (ED), Opioid Safety (ED) Referrals: [facility],. [Z.BUSINESS, APPLICATION, OTHER] - - Billing Disposition and Condition Condition: IMPROVED Disposition: Home - Attestation Statements Document Initiated by Lorraine: Yes Documenting Scribe: Palmer Jarvis Provider For Whom Lorraine is Documenting (Include Credential): Bi Vazquez Scribe Attestation: Palmer Chauhan scribed for Bi Vazquez on 05/06/18 at 1837. Scribe Documentation Reviewed: Yes Provider Attestation: The documentation as recorded by the Palmer boyd accurately reflects the service I personally performed and the decisions made by , Bi Vazquez
[2018-05-02 20:04] VITALS: BP 139/80
== END 2018-05-02 20:07 | disposition home or self-care (01) ==
LOC: ED 18:46
DX: T40.2X1A Poisoning by other opioids, accidental (unintentional), initial encounter (principal); Y92.9 Unspecified place or not applicable; F90.9 Attention-deficit hyperactivity disorder, unspecified type; B19.20 Unspecified viral hepatitis C without hepatic coma; F31.9 Bipolar disorder, unspecified
CPT/HCPCS: 99282